=== PATIENT | male | born 1965 | race Caucasian/White ===

== ENCOUNTER 2020-09-08 17:11 | Emergency (ER) | payer OTHER ==
[~2020-09-08] VITALS: Ht 185.4 cm; Wt 98.2 kg
[2020-09-08] MEDS ORDERED: ACETAMINOPHEN 500 MG TABLET PO ONE (18:45)
[2020-09-08] MEDS ORDERED: IBUPROFEN 600 MG TABLET PO ONE (18:45)
[2020-09-08] MEDS ORDERED: GuaiFENesin/D-METHORPHAN [SUGAR-FREE] 200-20MG/10 ML SYRUP UDCUP PO ONE (18:45)
[2020-09-08 19:28] LABS: COVID AG,FIA SOURCE NASOPHARYNGEAL
[2020-09-08 19:36] LABS: BASOPHILS % (AUTO) 0.3 % (0.0-2.0); EOSINOPHILS % (AUTO) 0 % (1.0-6.0); HEMATOCRIT 45.1 % (41-53); HEMOGLOBIN 15.2 g/dL (13.5-17.5); LYMPHOCYTES # (AUTO) 1.4 K/uL (1.0-4.8); LYMPHOCYTES % (AUTO) 10.9 % (22.0-44.0); MEAN CORPUSCULAR HEMOGLOBIN 29.8 pg (26.0-34.0); MEAN CORPUSCULAR HGB CONC 33.8 G/dL (31.0-37.0); MEAN CORPUSCULAR VOLUME 88 fL (80-100); MONOCYTES # (AUTO) 0.8 K/uL (0.1-1.0); MONOCYTES % (AUTO) 6.1 % (2.0-9.0); NEUTROPHILS # (AUTO) 10.5 K/uL (1.8-7.7); NEUTROPHILS % (AUTO) 82.7 % (40.0-70.0); PLATELET COUNT (AUTO) 268 K/uL (150-450); RED BLOOD CELL COUNT(AUTO) 5.11 MIL/uL (4.50-5.90); RED CELL DISTRIBUTION WIDTH 13.1 % (11.5-14.5)
[2020-09-08 19:51] LABS: CALCIUM, TOTAL 8.5 mg/dL (8.8-10.5); CREATININE 1.63 mg/dL (0.60-1.30); POTASSIUM 4.5 mmol/L (3.5-5.1)
[2020-09-08 19:56] LABS: ALBUMIN 3.8 g/dL (3.4-5.0); BILIRUBIN,TOTAL 0.6 mg/dL (0.1-1.0); TOTAL PROTEIN, SERUM 8.9 g/dL (6.4-8.2)
[2020-09-08 20:18] LABS: INFLUENZA TYPE A NEGATIVE FOR TYPE A (NEGATIVE); INFLUENZA TYPE B NEGATIVE FOR TYPE B (NEGATIVE)
[2020-09-08 21:30] VITALS: BP 133/68
== END 2020-09-08 21:45 | disposition home or self-care (01) ==
LOC: EMS 17:11
DX: U07.1 COVID-19 (principal)
CPT/HCPCS: 36415; 71045; 80053; 83880; 84484; 85025; 87426; 87804; 99284; U0003

== ENCOUNTER 2024-03-17 03:46 | Emergency (ER) | payer MEDICAID, OTHER ==
[~2024-03-17] VITALS: Ht 193 cm; Wt 102.3 kg
[~2024-03-17 03:46] MED LIST: ACET-2247 PO; GUAIFCF5L PO
[2024-03-17 03:47] VITALS: TEMP 98
[2024-03-17] MEDS ORDERED: METH4TAB3 PO (04:45)
[2024-03-17] MEDS ORDERED: AZIT250T9 PO (04:45)
[2024-03-17] MEDS ORDERED: DIPH25CA85 PO (04:45)
[2024-03-17] MEDS: DiphenhydrAMINE HCL 50 MG CAPSULE PO ONE (05:01)
[2024-03-17] MEDS: DEXAMETHASONE SOD PHOS 4 MG/ML 5 ML VIAL IM ONE (05:01)
[2024-03-17] MEDS: CefTRIAXone SODIUM 1 GM/VIAL IM ONE (05:01)
[2024-03-17] MEDS: LIDOCAINE/PF 1% 2 ML VIAL IM ONE (05:01)
[2024-03-17 05:26] VITALS: BP 159/83; PULSE 68; RESP 16
== END 2024-03-17 05:28 | disposition home or self-care (01) ==
LOC: EMS 03:47
DX: K12.2 Cellulitis and abscess of mouth (principal); J02.9 Acute pharyngitis, unspecified
CPT/HCPCS: 99284; 96372; J0696; J1100; J3490

== ENCOUNTER 2025-01-11 14:16 | Emergency (ER) | payer MEDICAID, OTHER ==
[~2025-01-11] VITALS: Ht 193 cm; Wt 100.0 kg
[~2025-01-11 14:16] MED LIST changes: +DIPH25CA85 PO; +METH4TAB3 PO
[2025-01-11 14:29] VITALS: TEMP 97.4
[2025-01-11 15:01] LABS: BASOPHILS % (AUTO) 0.5 % (0.0-2.0); EOSINOPHILS % (AUTO) 0.4 % (1.0-6.0); HEMATOCRIT 47.4 % (41-53); HEMOGLOBIN 15.8 g/dL (13.5-17.5); LYMPHOCYTES # (AUTO) 1.7 K/uL (1.0-4.8); LYMPHOCYTES % (AUTO) 16.1 % (22.0-44.0); MEAN CORPUSCULAR HEMOGLOBIN 29.4 pg (26.0-34.0); MEAN CORPUSCULAR HGB CONC 33.4 G/dL (31.0-37.0); MEAN CORPUSCULAR VOLUME 88 fL (80-100); MONOCYTES # (AUTO) 0.3 K/uL (0.1-1.0); MONOCYTES % (AUTO) 2.8 % (2.0-9.0); NEUTROPHILS # (AUTO) 8.5 K/uL (1.8-7.7); NEUTROPHILS % (AUTO) 80.2 % (40.0-70.0); PLATELET COUNT (AUTO) 327 K/uL (150-450); RED BLOOD CELL COUNT(AUTO) 5.38 MIL/uL (4.50-5.90); RED CELL DISTRIBUTION WIDTH 13.4 % (11.5-14.5); WHITE BLOOD COUNT (AUTO) 10.6 K/uL (4.5-11.0)
[2025-01-11 15:05] LABS: ANION GAP 8 mmol/L (8-16); CALCIUM, TOTAL 9.6 mg/dL (8.8-10.5); CARBON DIOXIDE 27 mmol/L (22-29); CHLORIDE 102 mmol/L (98-107); GLOMERULAR FILTR. RATE CALC > 60 mL/min (>60); GLUCOSE,RANDOM 167 mg/dL (70-110); POTASSIUM 4.1 mmol/L (3.5-5.1); SODIUM SERUM 137 mmol/L (136-145); UREA NITROGEN, BLOOD 13 mg/dL (7-18)
[2025-01-11 15:16] LABS: TROPONIN I-HIGH SENSITIVITY 5 ng/L (<76)
[2025-01-11] MEDS: ACETAMINOPHEN 500 MG TABLET PO ONE (15:40)
[2025-01-11] MEDS: MECLIZINE HCL 25 MG TABLET PO ONE (15:40)
[2025-01-11] MEDS: ONDANSETRON 4 MG TABLET PO ONE (15:41)
[2025-01-11 15:56] LABS: COVID AG,FIA SOURCE NASAL SWAB
[2025-01-11 16:21] LABS: INFLUENZA TYPE A NEGATIVE FOR TYPE A (NEGATIVE); INFLUENZA TYPE B NEGATIVE FOR TYPE B (NEGATIVE); SARS-COV2 (COVID) ANTIGEN,FIA Negative (Negative)
[2025-01-11] MEDS ORDERED: ONDA-104 PO (17:44)
[2025-01-11] MEDS ORDERED: ACET-66 PO (17:44)
[2025-01-11] MEDS ORDERED: MECL-134 PO (17:44)
[2025-01-11 18:27] VITALS: BP 154/87; PULSE 74; RESP 18; O2SAT 98
== END 2025-01-11 18:29 | disposition home or self-care (01) ==
LOC: EMS 14:16
DX: R42 Dizziness and giddiness (principal); R11.10 Vomiting, unspecified; Z90.49 Acquired absence of other specified parts of digestive tract; Z20.822 Contact with and (suspected) exposure to COVID-19
CPT/HCPCS: 99285; 71045; 87426; 80048; 84484; 85025; 87804; 36415; 93005; Q0162